=== PATIENT | female | born 1980 | race Caucasian/White ===

== ENCOUNTER 2024-02-24 14:15 | Outpatient (OUT) | payer OTHER, SELFPAY ==
--- NOTE | 2024-02-24 | XR_ITS ---
[address] [address] Patient Name: RODY MONTIEL MRN: [id number] date: 1980 Sex: F Assigned Patient Location: Current Patient Location: Accession/Order Number: [id number] Exam Date: 02/24/2024 14:52 Report Date: 02/24/2024 15:59 At the request of: JAG DUNN Procedure: XR foot CHRISTOPHER min 3V EXAMINATION: XR ankle CHRISTOPHER min 3V, XR foot CHRISTOPHER min 3V HISTORY: BILATERAL ANKLE PAIN COMPARISON: No relevant comparison available. FINDINGS: RIGHT FINDINGS: BONES: No acute fracture or dislocation. Mild degenerative changes with joint space narrowing and marginal osteophyte formation. Enthesopathic spurring of the calcaneus. SOFT TISSUES: Negative. No visible soft tissue swelling. OTHER: Negative. LEFT FINDINGS: BONES: No acute fracture or dislocation. Mild degenerative changes with joint space narrowing and marginal osteophyte formation. Enthesopathic spurring of the calcaneus. SOFT TISSUES: Negative. No visible soft tissue swelling. OTHER: Negative. XR/XR foot CHRISTOPHER min 3V IMPRESSION: RIGHT CONCLUSION: Degenerative changes LEFT CONCLUSION: Degenerative changes Electronically authenticated by: FRANCK MCCANN Date: 02/24/2024 15:59
--- NOTE | 2024-02-24 | XR_ITS ---
[address] [address] Patient Name: RODY MONTIEL MRN: [id number] date: 1980 Sex: F Assigned Patient Location: Current Patient Location: Accession/Order Number: [id number] Exam Date: 02/24/2024 15:19 Report Date: 02/24/2024 15:59 At the request of: JAG DUNN Procedure: XR ankle CHRISTOPHER min 3V EXAMINATION: XR ankle CHRISTOPHER min 3V, XR foot CHRISTOPHER min 3V HISTORY: BILATERAL ANKLE PAIN COMPARISON: No relevant comparison available. FINDINGS: RIGHT FINDINGS: BONES: No acute fracture or dislocation. Mild degenerative changes with joint space narrowing and marginal osteophyte formation. Enthesopathic spurring of the calcaneus. SOFT TISSUES: Negative. No visible soft tissue swelling. OTHER: Negative. LEFT FINDINGS: BONES: No acute fracture or dislocation. Mild degenerative changes with joint space narrowing and marginal osteophyte formation. Enthesopathic spurring of the calcaneus. SOFT TISSUES: Negative. No visible soft tissue swelling. OTHER: Negative. XR/XR ankle CHRISTOPHER min 3V IMPRESSION: RIGHT CONCLUSION: Degenerative changes LEFT CONCLUSION: Degenerative changes Electronically authenticated by: FRANCK MCCANN Date: 02/24/2024 15:59
== END 2024-02-24 14:16 | disposition home or self-care (01) ==
LOC: EC 14:15
PROVIDERS: PCP Nurse Practitioner; Visit Provider Podiatrist Foot & Ankle Surgery
DX: M79.672 Pain in left foot (principal); M79.671 Pain in right foot; M25.572 Pain in left ankle and joints of left foot; M25.571 Pain in right ankle and joints of right foot; M19.012 Primary osteoarthritis, left shoulder; M19.011 Primary osteoarthritis, right shoulder
CPT/HCPCS: 73610; 73630

== ENCOUNTER 2024-03-09 16:50 | Outpatient (RCR) | payer OTHER, SELFPAY | END 2024-04-06 17:18 | disposition home or self-care (01) | LOC: PT 16:50 | PROVIDERS: PCP Nurse Practitioner; Visit Provider Podiatrist Foot & Ankle Surgery | DX: M76.62 Achilles tendinitis, left leg (principal) | CPT/HCPCS: 20561; 97140; 97162 ==

== ENCOUNTER 2024-07-19 11:13 | Outpatient (OUT) | payer MEDICARE, OTHER, SELFPAY ==
--- NOTE | 2024-07-19 | XR_ITS ---
The [address] [address] Patient Name: RODY RILEY MRN: [id number] date: 1980 Sex: F Assigned Patient Location: [facility] Current Patient Location: [facility] Accession/Order Number: [id number] Exam Date: 07/19/2024 11:26 Report Date: 07/19/2024 14:00 At the request of: JAG DUNN Procedure: XR ankle CHRISTOPHER min 3V EXAMINATION: XR ankle CHRISTOPHER min 3V HISTORY: BILATERAL ANKLE PAIN COMPARISON: 02/24/2024 FINDINGS: RIGHT FINDINGS: BONES: No acute fracture or dislocation. Stable degenerative changes with marginal osteophyte formation. Enthesopathic spurring of the calcaneus SOFT TISSUES: Negative. No visible soft tissue swelling. OTHER: Negative. LEFT FINDINGS: BONES: No acute fracture or dislocation. Moderate degenerative changes most significant along the medial and lateral malleolus suggesting remote traumatic injury.. SOFT TISSUES: Multiple surgical clips OTHER: Negative. XR/XR ankle CHRISTOPHER min 3V IMPRESSION: Bilateral stable degenerative changes, left greater than right Electronically authenticated by: FRANCK MCCANN Date: 07/19/2024 14:00
== END 2024-07-19 11:14 | disposition home or self-care (01) ==
LOC: RAD 11:13
PROVIDERS: PCP Nurse Practitioner; Visit Provider Podiatrist Foot & Ankle Surgery
DX: M25.572 Pain in left ankle and joints of left foot (principal); M25.571 Pain in right ankle and joints of right foot
CPT/HCPCS: 73610